=== PATIENT | female | born 1955 | race African-American/Black ===

== ENCOUNTER 2024-12-28 21:18 | Emergency (ER) | payer OTHER ==
[~2024-12-28] VITALS: Ht 165.1 cm; Wt 82.0 kg
[2024-12-28 21:21] VITALS: TEMP 36.8; O2SAT 97
[2024-12-28] MEDS: METHYLPREDNISOLONE SOD SUCC 125MG/2ML (ACT-O-VIAL) IV ONE (23:19)
[2024-12-28] MEDS: DIPHENHYDRAMINE 50MG/ML VIAL IV ONE (23:20)
[2024-12-28 23:28] VITALS: BP 136/67; PULSE 77; RESP 18; O2SAT 100
[2024-12-28 23:28] LABS: BASOPHILS % 0.5 % (0.0-2.0); EOSINOPHILS % 0.7 % (0.0-5.0); HEMATOCRIT. 32.7 % (36.0-48.0); HEMOGLOBIN. 11.1 g/dL (12.0-16.0); LYMPHOCYTES % 12.2 % (20.0-50.0); MEAN CORPUSCULAR HEMOGLOBIN 30.4 pg (28.0-32.0); MEAN CORPUSCULAR HGB CONC 33.8 g/dL (31.0-37.0); MEAN CORPUSCULAR VOLUME 89.8 fL (81.0-99.0); MEAN PLATELET VOLUME 7.5 fl (7.4-10.4); MONOCYTES % 5.7 % (2.0-8.0); NEUTROPHILS % 80.9 % (40.0-76.0); PLATELET 199 x1000/uL (130-400); RED BLOOD CELL COUNT 3.64 mill/uL (4.2-5.4); RED CELL DISTRIBUTION WIDTH 14.7 % (11.6-14.6); WHITE BLOOD COUNT 9.3 x1000/uL (4.5-11.0)
[2024-12-28 23:33] LABS: CARBON DIOXIDE 24 mEq/L (21-32); CHLORIDE 104 mEq/L (98-107); POTASSIUM 3.6 mEq/L (3.5-5.1); SODIUM 138 mEq/L (136-145)
[2024-12-28 23:34] LABS: CALCIUM 9.3 mg/dL (8.7-10.4); PROTHROMBIN TIME 11.1 sec (9.6-11.0)
[2024-12-28 23:38] LABS: CREATININE 0.9 mg/dL (0.6-1.0); GLUCOSE 126 mg/dL (70-105)
[2024-12-28 23:39] LABS: UREA NITROGEN BLOOD 16 mg/dL (9-23)
[2024-12-28 23:40] LABS: ALANINE AMINOTRANSFERASE 9 IU/L (10-49); ASPARTATE AMINOTRANSFERASE 16 IU/L (<34)
[2024-12-28 23:41] LABS: ALBUMIN 4.3 g/dL (3.2-4.8); BILIRUBIN DIRECT 0.2 mg/dL (<=3.0); BILIRUBIN TOTAL 0.5 mg/dL (0.1-1.0); PROTEIN TOTAL 7.2 g/dL (6.0-8.3)
[2024-12-29 00:42] LABS: TROPONIN I HIGH SENSITIVITY < 4 ng/L (3.0-34)
[2024-12-29] MEDS ORDERED: B50 MT (01:03)
[2024-12-29] MEDS ORDERED: P50 MT (01:03)
== END 2024-12-29 01:34 | disposition home or self-care (01) ==
LOC: ER 21:18
DX: T78.49XA Other allergy, initial encounter (principal); R42 Dizziness and giddiness; X58.XXXA Exposure to other specified factors, initial encounter
CPT/HCPCS: 99285; 96374; 71045; 96375; 80076; 80048; 82962; 83690; 85025; 85610; 84484; 36415; 93005; J2919; J1200